=== PATIENT | male | born 1975 | race African-American/Black ===

== ENCOUNTER 2019-02-19 06:37 | Emergency (ER) | payer MEDICAID ==
[~2019-02-19] VITALS: Ht 175.3 cm; Wt 105.5 kg
[2019-02-19 06:44] VITALS: BP 205/133
--- NOTE | 2019-02-19 06:55 | NUR ---
43/M PRESENTED TO ED WITH C/O OCCIPITAL/FRONTAL LOBE GOEL ON/OFF X 3 DAYS. HAD NOSE BLEED LAST NIGHT. DENIES N/V. CURRENT BP 205/133. STATES NON COMPLIANT WITH HTN MEDS. STATES "SLIGHT HEADACHE" PMH-- HTN RX-- NON COMPLIANT
--- NOTE | 2019-02-19 07:13 | NUR ---
GAVE BEDSIDE REPORT TO DAYSHIFT SOWMYA MCKINLEY
--- NOTE | 2019-02-19 07:16 | NUR ---
Patient being evaluated by physician at bedside.
[2019-02-19] MEDS ORDERED: KETOROLAC 60 MG/2 ML VIAL IM ONE (07:25)
[2019-02-19] MEDS ORDERED: ENALAPRIL 10 MG TAB PO ONE (07:25)
[2019-02-19 08:17] VITALS: BP 175/125
--- NOTE | 2019-02-19 08:17 | NUR ---
PATIENT STATED FEELING MUCH BETTER NOW. DENIES PAIN, VSS. Patient discharged with RX OF ENALAPRIL, MOTRIN, HYDROCHLOROTHIAZIDE, PREDENISONE. Patient educated on indication of medication including possible reaction and side effects. All questions addressed prior to discharge. ID band removed. Patient advised to follow up with PMD.
== END 2019-02-19 08:17 | disposition home or self-care (01) ==
LOC: MED 06:37
DX: R51 Headache (principal); I10 Essential (primary) hypertension; F17.200 Nicotine dependence, unspecified, uncomplicated
CPT/HCPCS: 96372; 99283; J1885

== ENCOUNTER 2019-04-08 10:06 | Emergency (ER) | payer MEDICAID ==
[~2019-04-08] VITALS: Ht 175.3 cm; Wt 104.3 kg
[2019-04-08 10:10] VITALS: BP 196/137
--- NOTE | 2019-04-08 10:10 | NUR ---
Patient ambulated to bed 7 with family. RN evaluating patient at bedside.
--- NOTE | 2019-04-08 10:15 | NUR ---
43/M BIB FRIEND c/o left eye swelling, redness and pain x1 day. Pt also c/o photophobia. Patient states he fell asleep with his contacts the night before and took them out yesterday morning. Pt states "It feels like there is sand in his eye." HX HTN. PATIENT STATES PAIN OF 4/10 AT THIS TIME. PATIENT POSITIONED FOR COMFORT; HOB ELEVATED; BEDRAILS UP X1; BED DOWN. ER MD MADE AWARE OF PT STATUS.
[2019-04-08] MEDS ORDERED: FLUORESCEIN OPTH STRIP 1 MG OP ONE (10:20)
--- NOTE | 2019-04-08 11:20 | NUR ---
Patient being evaluated by DR ENGLAND at bedside.
--- NOTE | 2019-04-08 11:30 | NUR ---
REPORT GIVEN TO TIM CHARGE NURSE.
--- NOTE | 2019-04-08 11:38 | NUR ---
IRRIGATED LEFT EYE WITH 40 mL SALINE. PATIENT SAYS THEY FELT RELIEF AFTER IRRIGATION.
[2019-04-08 12:04] VITALS: BP 128/83
--- NOTE | 2019-04-08 12:04 | NUR ---
Patient discharged with v/s stable. Written and verbal after care instructions given and explained. Patient alert, oriented and verbalized understanding of instructions. Ambulatory with steady gait. All questions addressed prior to discharge. ID band removed. Patient advised to follow up with PMD. Rx of CIPRO & MOTRIN given. Patient educated on indication of medication including possible reaction and side effects. Opportunity to ask questions provided and answered.
== END 2019-04-08 12:04 | disposition home or self-care (01) ==
LOC: MED 10:06
DX: H16.002 Unspecified corneal ulcer, left eye (principal); I10 Essential (primary) hypertension; F17.200 Nicotine dependence, unspecified, uncomplicated
CPT/HCPCS: 99283

== ENCOUNTER 2019-11-30 16:32 | Emergency (ER) | payer MEDICAID ==
[~2019-11-30] VITALS: Ht 175.3 cm; Wt 90.7 kg
[2019-11-30 16:39] VITALS: BP 150/87
[2019-11-30] MEDS ORDERED: MORPHINE SULFATE 4 MG/ML SYR IVP ONE (16:50)
[2019-11-30] MEDS ORDERED: ONDANSETRON 4 MG/2 ML VIAL IVP ONE (16:50)
[2019-11-30 17:37] LABS: BASOPHILS % (AUTO) 0.2 % (0.0-2.0); EOSINOPHILS # (AUTO) 0.3 K/uL (0-0.4); EOSINOPHILS % (AUTO) 3.9 % (0.0-4.0); HEMATOCRIT 41.5 % (36-52); HEMOGLOBIN 13.4 g/dL (12.0-18.0); LYMPHOCYTES % (AUTO) 12.7 % (20.5-51.1); MEAN CORPUSCULAR HEMOGLOBIN 27 pg (27-31); MEAN CORPUSCULAR HGB CONC 32 g/dL (33-37); MONOCYTES # (AUTO) 0.5 K/uL (0.8-1.0); MONOCYTES % (AUTO) 6.3 % (1.7-9.3); NEUTROPHILS # (AUTO) 6.3 K/uL (1.8-7.7); NEUTROPHILS % (AUTO) 76.9 % (42.2-75.2); PLATELET COUNT (AUTO) 216 K/uL (140-450); RED BLOOD CELL COUNT(AUTO) 5.07 MIL/uL (4.20-6.10); RED CELL DISTRIBUTION WIDTH 14.8 % (11.6-13.7); WHITE BLOOD COUNT (AUTO) 8.2 K/uL (4.8-10.8)
[2019-11-30 18:01] LABS: ALBUMIN 3.5 g/dL (3.4-5.0); ANION GAP 14.3 (8-16); CARBON DIOXIDE 26.9 mmol/L (21-32); POTASSIUM 3.2 mmol/L (3.5-5.1); TOTAL BILIRUBIN 0.3 mg/dL (0.0-1.0)
[2019-11-30 18:34] VITALS: BP 156/74
== END 2019-11-30 18:30 | disposition home or self-care (01) ==
LOC: MED 16:32
DX: N39.0 Urinary tract infection, site not specified (principal); R11.10 Vomiting, unspecified; I10 Essential (primary) hypertension
CPT/HCPCS: 36415; 80053; 83690; 85025; 99284; J2270; J2405

== ENCOUNTER 2020-01-13 01:55 | Emergency (ER) | payer MEDICAID | END 2020-01-13 04:58 | disposition home or self-care (01) | LOC: MED 01:55 | DX: L03.011 Cellulitis of right finger (principal); F15.10 Other stimulant abuse, uncomplicated | CPT/HCPCS: 26010; 96372; 99283 ==

== ENCOUNTER 2022-01-05 20:22 | Emergency (ER) | payer OTHER, MEDICAID ==
[~2022-01-05] VITALS: Ht 175.3 cm; Wt 126.3 kg
[2022-01-05 20:37] VITALS: BP 126/83
--- NOTE | 2022-01-05 20:41 | NUR ---
PT TO LOBBY
[2022-01-05 21:39] LABS: APPEARANCE,URINE CLEAR (CLEAR); BILIRUBIN,URINE NEGATIVE (NEGATIVE); BLOOD, URINE NEGATIVE (NEGATIVE); COLOR,URINE YELLOW (YELLOW); LEUKOCYTE ESTERASE ,URINE NEGATIVE (NEGATIVE); NITRITE, URINE NEGATIVE (NEGATIVE); PH,URINE 6.5 (5.0-9.0); UGLUCOSE NEGATIVE (NEGATIVE)
--- NOTE | 2022-01-06 00:24 | NUR ---
Dr. Portillo examining patient.
[2022-01-06] MEDS ORDERED: KETOROLAC 60 MG/2 ML VIAL IM ONE (00:40)
[2022-01-06] MEDS ORDERED: NAPR-54 PO (01:07)
[2022-01-06] MEDS ORDERED: CEPH-588 PO (01:11)
[2022-01-06 01:13] VITALS: BP 114/76
== END 2022-01-06 01:13 | disposition home or self-care (01) ==
LOC: MED 20:22
DX: S52.571A Other intraarticular fracture of lower end of right radius, initial encounter for closed fracture (principal); I10 Essential (primary) hypertension; Z79.899 Other long term (current) drug therapy; V29.88XA Motorcycle rider (driver) (passenger) injured in other specified transport accidents, initial encounter; Y93.89 Activity, other specified; Y92.89 Other specified places as the place of occurrence of the external cause; Y99.8 Other external cause status
CPT/HCPCS: 29125; 73110; 81003; 96372; 99284; J1885

== ENCOUNTER 2022-02-13 14:50 | Inpatient (IN) | payer MEDICAID ==
[~2022-02-13] VITALS: Ht 175.3 cm; Wt 124.3 kg
[~2022-02-13 14:50] MED LIST: ASPI-1749 PO; ATOR40TA PO; CEPH-588 PO; METO25TE2 PO; NIFE60TE5 PO
[2022-02-13 14:57] VITALS: BP 123/83
[2022-02-13] MEDS ORDERED: IBUPROFEN 600 MG TAB PO ONE ×2 (15:40→17:20)
--- NOTE | 2022-02-13 15:51 | NUR ---
lab at bedside
[2022-02-13 16:07] LABS: BASOPHILS # (AUTO) 0.1 K/uL (0.00-0.22); BASOPHILS % (AUTO) 0.7 % (0.0-2.0); EOSINOPHILS # (AUTO) 0.7 K/uL (0-0.4); EOSINOPHILS % (AUTO) 7.5 % (0.0-4.0); HEMATOCRIT 40.4 % (36-52); HEMOGLOBIN 13.7 g/dL (12.0-18.0); LYMPHOCYTES # (AUTO) 2.2 K/uL (2.0-11.5); MEAN CORPUSCULAR HEMOGLOBIN 27 pg (27-31); MEAN CORPUSCULAR HGB CONC 34 g/dL (33-37); MONOCYTES # (AUTO) 0.5 K/uL (0.8-1.0); MONOCYTES % (AUTO) 5.8 % (1.7-9.3); NEUTROPHILS # (AUTO) 5.4 K/uL (1.8-7.7); PLATELET COUNT (AUTO) 291 K/uL (140-450); RED BLOOD CELL COUNT(AUTO) 5.11 MIL/uL (4.20-6.10); RED CELL DISTRIBUTION WIDTH 14.5 % (11.6-13.7); WHITE BLOOD COUNT (AUTO) 8.9 K/uL (4.8-10.8)
[2022-02-13 16:37] LABS: ALBUMIN 3.7 g/dL (3.4-5.0); ASPARTATE AMINOTRANSFERASE 33 U/L (15-37); CARBON DIOXIDE 26.4 mmol/L (21-32); CHLORIDE 101 mmol/L (98-107); GLUCOSE 151 mg/dL (74-106); POTASSIUM 4.4 mmol/L (3.5-5.1); SODIUM SERUM 137 mmol/L (136-145); TOTAL BILIRUBIN 0.3 mg/dL (0.0-1.0); UREA NITROGEN, BLOOD 16 mg/dL (7-18)
--- NOTE | 2022-02-13 16:50 | NUR ---
TP ER BED 4
[2022-02-13] MEDS ORDERED: ASPIRIN 325 MG TAB ONE (17:04)
[2022-02-13] MEDS ORDERED: IBUPROFEN 600 MG TAB ONE (17:05)
[2022-02-13 17:08] LABS: CREATININE 0.9 mg/dL (0.6-1.3); GFR ARICAN-AMERICAN 118 mL/min (>90)
[2022-02-13] MEDS ORDERED: HYDROcodone/APAP 7.5/325 MG 1 TAB PO ONE (17:10)
[2022-02-13] MEDS ORDERED: ENOXAPARIN 120 MG/0.8 ML SYR SUBQ ONE (17:10)
[2022-02-13] MEDS ORDERED: ASPIRIN 325 MG TABEC PO STA (17:18)
--- NOTE | 2022-02-13 17:37 | NUR ---
ARLINE obtained, handed to CPT Traci at bedside.
--- NOTE | 2022-02-13 18:06 | NUR ---
Med rec complete.
--- NOTE | 2022-02-13 18:12 | NUR ---
Patient was taken to imaging via wheelchair
--- NOTE | 2022-02-13 19:00 | NUR ---
Patient was offered dinner tray.
--- NOTE | 2022-02-13 19:22 | NUR ---
Report given to SOWMYA Reed for transfer of care.
--- NOTE | 2022-02-13 20:12 | NUR ---
Patient will be admitted to care of TELEMETRY NURSE MARIA T DENG. Admited to TELEMETRY. Will go to room 119B. Belongings list completed. Bedside report to TELEMETRY NURSE MARIA T DENG. TELEMETRY NURSE MARIA T DNEG verbalized understanding of report, no further questions. Patient safely transferred to bed.
--- NOTE | 2022-02-13 20:20 | NUR ---
ADMITTED PT TO [facility] DEPARTMENT FROM ER [facility]RU [facility] WITH THE DIAGNOSIS OF CHEST PAIN. PT IS AOX4, AMBULATORY, ABLE TO VERBALIZE NEEDS AND ABLE TO FOLLOW COMMANDS. PT IS ON ROOM AIR WITH NORMAL SINUS RHYTHM AND ON CARDIAC DIET. PT HAS IV ON LEFT AC GAUGE 18 SALINE LOCK. PT IS CONTINENT AND SKIN IS INTACT. PT HAS NO COMPLAIN OF PAIN THIS TIME AND NO S/S OF DISTRESS. PT WAS ORIENTED TO ROOM/HOSPITAL, BED BUTTON AND CALL LIGHT. ALL SAFETY MEASURES WAS GIVEN. BED IN LOW POSITION, BED WHEELS ON LOCKED AND CALL LIGHT WITHIN REACH.
[2022-02-13] MEDS ORDERED: ACETAMINOPHEN 325 MG TAB PO PRN (21:40)
[2022-02-13] MEDS ORDERED: HYDROcodone/APAP 5/325 MG 1 TAB TAB PO PRN (21:40)
[2022-02-13] MEDS ORDERED: ONDANSETRON 4 MG/2 ML VIAL IVP PRN (21:40)
--- NOTE | 2022-02-13 22:00 | NUR ---
PT WAS GIVEN CRANBERRY JUICE AND CRACKERS PER PT REQUEST. ALL SAFETY MEASURES IMPLEMENTED. BED IN LOW POSITION, BED WHEELS ON LOCKED AND CALL LIGHT WITHIN REACH.
[2022-02-14] VITALS: BP 133/74
--- NOTE | 2022-02-14 | NUR ---
CHANGED THE PT SOCKS INTO HOSPITAL SOCK FOR ANTI-SLIPPERY. ALL SAFETY MEASURES IMPLEMENTED. BED IN LOW POSITION, BED WHEELS ON LOCKED AND CALL LIGHT WITHIN REACH.
--- NOTE | 2022-02-14 02:00 | NUR ---
PT IS SLEEPING. CHEST RISE AND FALL SYMMETRICALLY NOTED. NO S/S OF DISTRESS NOTED. ALL SAFETY MEASURES IMPLEMENTED. BED IN LOW POSITION, BED WHEELS ON LOCKED AND CALL LIGHT WITHIN REACH.
[2022-02-14 04:00] VITALS: BP 141/92
--- NOTE | 2022-02-14 04:00 | NUR ---
CHECKED THE PT, STILL SLEEPING. CHEST RISE AND FALL SYMMETRICALLY NOTED. NO S/S OF DISTRESS NOTED SATING AT 96% WITH RR OF 20, PULSE OF 68, TEMP OF 97.4 AND BP OF 141/92. ALL SAFETY MEASURES IMPLEMENTED. BED IN LOW POSITION, BED WHEELS ON LOCKED AND CALL LIGHT WITHIN REACH.
[2022-02-14 05:41] LABS: BASOPHILS % (AUTO) 0.4 % (0.0-2.0); EOSINOPHILS # (AUTO) 0.6 K/uL (0-0.4); EOSINOPHILS % (AUTO) 8.2 % (0.0-4.0); HEMATOCRIT 38.6 % (36-52); HEMOGLOBIN 13.1 g/dL (12.0-18.0); LYMPHOCYTES # (AUTO) 2.2 K/uL (2.0-11.5); LYMPHOCYTES % (AUTO) 28.5 % (20.5-51.1); MEAN CORPUSCULAR HEMOGLOBIN 27 pg (27-31); MEAN CORPUSCULAR HGB CONC 34 g/dL (33-37); MEAN CORPUSCULAR VOLUME 79.1 fL (80-94); MONOCYTES # (AUTO) 0.6 K/uL (0.8-1.0); MONOCYTES % (AUTO) 7.1 % (1.7-9.3); NEUTROPHILS # (AUTO) 4.4 K/uL (1.8-7.7); NEUTROPHILS % (AUTO) 55.8 % (42.2-75.2); PLATELET COUNT (AUTO) 257 K/uL (140-450); RED BLOOD CELL COUNT(AUTO) 4.88 MIL/uL (4.20-6.10); RED CELL DISTRIBUTION WIDTH 14.6 % (11.6-13.7); WHITE BLOOD COUNT (AUTO) 7.9 K/uL (4.8-10.8)
[2022-02-14 06:03] LABS: ANION GAP 11.5 (8-16); CARBON DIOXIDE 28.5 mmol/L (21-32); CREATININE 0.7 mg/dL (0.6-1.3)
[2022-02-14 06:08] LABS: MAGNESIUM 1.9 mg/dL (1.8-2.4); PHOSPHORUS 4.5 mg/dL (2.5-4.9)
[2022-02-14 06:10] LABS: CHOL/HDL RATIO 4.2 (1-4.5); THYROID STIMULATING HORMONE 3.5 uIU/mL (0.34-3.74)
--- NOTE | 2022-02-14 07:19 | NUR ---
PT IS STABLE. ENDORSED PT TO MORNING SHIFT NURSE FOR CONTINUITY OF CARE.
[2022-02-14] MEDS ORDERED: ASPIRIN 325 MG TABEC PO SCH (09:00)
[2022-02-14] MEDS ORDERED: ASPIRIN 81 MG TAB.CHEW PO SCH (09:00)
[2022-02-14] MEDS ORDERED: NIFEdipine 60 MG TABER PO SCH (09:00)
[2022-02-14] MEDS ORDERED: METOPROLOL SUCCINATE 50 MG TABER PO SCH (09:00)
[2022-02-14] MEDS ORDERED: OMEG-20 PO (10:27)
[2022-02-14 10:59] VITALS: BP 144/88
--- NOTE | 2022-02-14 11:53 | NUR ---
PT IS AOX4. VITALS ARE STABLE. SCHEDULED MEDICATIONS WERE ADMINISTERED. NO COMPLAIN OF PAIN , NO SIGNS OF DISTRESS, CALL LIGHT WITHIN REACH AND BED IS LOW POSITION.
--- NOTE | 2022-02-14 13:19 | NUR ---
DC PLANNING SW MET WITH PT AT BEDSIDE TO COMPLETE ASSESSMENT. PT REPORTS RENTING A ROOM IN HOME, AT THE ADDRESS LISTED ON FILE. PATIENT IDENTIFIED [employer], MOTHER, AND MABEL HAYWOOD, FRIEND, EMERGENCY CONTACT. PATIENT REPORT MEETING WITH PCP REGULARLY, LAST VISIT 02/13. PATIENT REPORTS BEING SENT TO ED BY . PATIENT REPORTS MEDICATION COMPLIANCE AND DENIES BARRIERS IN ACCESS TO NEEDED MEDICATIONS. PATIENT REPORTS RECEIVING MEDIATIONS FROM [facility]/MICHAEL IN [place], WHEN NEEDED. PATIENT REPORTS BEING INDEPENDENT IN ALL ACTIVITIES AND DENIES USE OF DME. PATIENT COMPLETES ALL ADL'S INDEPENDENTLY. PATIENT DENIES MH HX. PT REPORTS SUBSTANCE USE HX OF METH USE THAT HE REPORTS STARTING 10 YRS AGO. PATIENT REPORTS HE USED RECREATIONALLY AND DENIES CURRENT USE. PATIENT REPORTS THAT HE HAS NOT USED IN THREE YEARS AND ATTRIBUTES SOBRIETY TO HIS CHILDREN AND [employer] A[employer]. PATIENT ADAMANTLY DENIED CURRENT USE DESPITE TESTING POSITIVE FOR OPIATE USE. PT DECLINED SUBSTANCE USE RESOURCES OFFERED BY [facility]. PATIENT DENIED HX OF DIABETES, DIALYSIS,HH OR SNF PLACEMENT. PATIENT REPORTS DC PLAN IS TO RETURN HOME WITH HIS FRIEND MABEL PROVIDING TRANSPORTATION WHEN MEDICALLY STABLE. PT REQUESTING [employer] PHONE NUMBER. SW TO PROVIDE. SW INQUIRED ON ADDITIONAL RESOURCES NEEDED, PATIENT DECLINED. Addendum: 02/14/22 at 1521 by Tabatha Peters PROVIDE PATIENT WITH [facility] [employer] PHONE NUMBER. PT ACCEPTED
--- NOTE | 2022-02-14 13:30 | NUR ---
REPORT RECEIVED FROM DAYSHIFT NURSE FOR CONTINUITY OF CARE. PT A/O X4. ABLE TO MAKE NEEDS KNOWN. NO SOB OR RESPIRATORY DISTRESS. ON RA. PLAN OF CARE DISCUSSED. PT DENIES CHEST PAIN. PT VERBALIZED UNDERSTANDING. NEEDS ALL MET AT THIS TIME. ALL SAFETY MEASURES IN PLACE.
[2022-02-14 14:57] VITALS: BP 144/88
--- NOTE | 2022-02-14 16:15 | NUR ---
DISCHARGE INSTRUCTIONS GIVEN. PT VERBALIZED UNDERSTANDING. IV DISCONTINUED, CATHETER INTACT, NO ACTIVE BLEEDING. PT AMBULATED OUT ASSISTED.
[2022-02-14] MEDS ORDERED: ATORVASTATIN 20 MG TAB PO SCH (21:00)
== END 2022-02-14 16:15 | disposition home or self-care (01) | DRG 190 ==
LOC: MED 14:50 → MTU 17:52
PROVIDERS: ADMIT Preventive Medicine Preventive Medicine/Occupational Environmental Medicine; ATTEND Preventive Medicine Preventive Medicine/Occupational Environmental Medicine
DX: I21.4 Non-ST elevation (NSTEMI) myocardial infarction (principal); E83.51 Hypocalcemia; E78.5 Hyperlipidemia, unspecified; I10 Essential (primary) hypertension; Z20.822 Contact with and (suspected) exposure to COVID-19; I24.9 Acute ischemic heart disease, unspecified; R79.89 Other specified abnormal findings of blood chemistry; Z87.891 Personal history of nicotine dependence
CPT/HCPCS: 36415; 71045; 71275; 80048; 80053; 83735; 84100; 84443; 84484; 85025; 85379; 87081; 93005; 96372; 99285; J1650; Q9967

== ENCOUNTER 2022-08-15 14:24 | Emergency (ER) | payer MEDICAID ==
[~2022-08-15] VITALS: Ht 175.3 cm; Wt 130.2 kg
[~2022-08-15 14:24] MED LIST changes: -CEPH-588 PO; +OMEG-20 PO
[2022-08-15 14:46] VITALS: BP 204/117
--- NOTE | 2022-08-15 15:04 | NUR ---
PT AMBULATED TO ER BED3
--- NOTE | 2022-08-15 15:11 | NUR ---
ASSUMED PATIENT CARE, NURSING ASSESSMENT COMPLETED.
[2022-08-15] MEDS ORDERED: METO-747 PO (15:44)
[2022-08-15] MEDS ORDERED: NIFE60TE5 PO (15:44)
[2022-08-15] MEDS ORDERED: CLIN300C61 PO ×2 (15:44→17:11)
[2022-08-15] MEDS ORDERED: ACET-8905 PO ×2 (15:44→17:11)
[2022-08-15 15:57] VITALS: BP 156/99
--- NOTE | 2022-08-15 15:58 | NUR ---
Patient discharged with v/s stable. Written and verbal after care instructions given and explained. Patient alert, oriented and verbalized understanding of instructions. Ambulatory with steady gait. All questions addressed prior to discharge. ID band removed. Patient advised to follow up with PMD. Rx of NORCO, CLINDAMYCIN, METOPROLOL, NIFEDIPINE given. Patient educated on indication of medication including possible reaction and side effects. Opportunity to ask questions provided and answered.
== END 2022-08-15 15:57 | disposition home or self-care (01) ==
LOC: MED 14:24
DX: K08.89 Other specified disorders of teeth and supporting structures (principal); I10 Essential (primary) hypertension; Z76.0 Encounter for issue of repeat prescription; Z79.899 Other long term (current) drug therapy
CPT/HCPCS: 99283

== ENCOUNTER 2022-10-17 14:41 | Inpatient (IN) | payer MEDICAID ==
[~2022-10-17] VITALS: Ht 172.7 cm; Wt 127.0 kg
[~2022-10-17 14:41] MED LIST changes: +ACET-8905 PO; +CLIN300C61 PO; +METO-747 PO
[2022-10-17 16:40] VITALS: BP 180/124
--- NOTE | 2022-10-17 16:51 | NUR ---
TO BED 2 WITH NO ACUTE DISTRESS. NO SOB.
[2022-10-17] MEDS ORDERED: KETOROLAC 30 MG/ML VIAL IVP ONE (17:05)
[2022-10-17] MEDS ORDERED: NACL 0.9% 1,000 ML IV ONE (17:05)
--- NOTE | 2022-10-17 17:14 | NUR ---
SIN AT BEDSIDE FOR EVALUATION
--- NOTE | 2022-10-17 17:15 | NUR ---
47YO MALE PT C/O SHARP L CHEST PAIN XYESTERDAY. REPORTS SUDDEN INTERMITTENT ONSETS AND OCCASIONAL MUSCLE SPASMS. DENIES RADIATION ,N/V/D, NUMBING, SOB OR TAKING MEDICATION. 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 HOB POSITIONED PER COMFORT HX: HTN NKA
[2022-10-17] MEDS ORDERED: METOPROLOL 50 MG TAB PO ONE (17:30)
[2022-10-17] MEDS ORDERED: NIFEdipine 30 MG TABER PO ONE (17:30)
[2022-10-17 17:42] LABS: BASOPHILS % (AUTO) 0.2 % (0.0-2.0); EOSINOPHILS # (AUTO) 0.3 K/uL (0-0.4); EOSINOPHILS % (AUTO) 3.2 % (0.0-4.0); HEMATOCRIT 46.3 % (36-52); HEMOGLOBIN 15.5 g/dL (12.0-18.0); LYMPHOCYTES # (AUTO) 2.1 K/uL (2.0-11.5); LYMPHOCYTES % (AUTO) 26.3 % (20.5-51.1); MEAN CORPUSCULAR HEMOGLOBIN 26 pg (27-31); MEAN CORPUSCULAR HGB CONC 34 g/dL (33-37); MEAN CORPUSCULAR VOLUME 78.7 fL (80-94); MONOCYTES # (AUTO) 0.6 K/uL (0.8-1.0); NEUTROPHILS % (AUTO) 63.3 % (42.2-75.2); PLATELET COUNT (AUTO) 159 K/uL (140-450); RED BLOOD CELL COUNT(AUTO) 5.89 MIL/uL (4.20-6.10); RED CELL DISTRIBUTION WIDTH 15.8 % (11.6-13.7); WHITE BLOOD COUNT (AUTO) 7.9 K/uL (4.8-10.8)
[2022-10-17 18:06] LABS: ALBUMIN 3.8 g/dL (3.4-5.0); ANION GAP 12.6 (8-16); CARBON DIOXIDE 30.5 mmol/L (21-32); CREATININE 0.9 mg/dL (0.6-1.3); POTASSIUM 4.1 mmol/L (3.5-5.1); TOTAL BILIRUBIN 0.3 mg/dL (0.0-1.0)
[2022-10-17 18:15] LABS: BARBITURATE, URINE NEGATIVE ng/ml (NEG <=200); BENZODIAZEPINE, URINE NEGATIVE ng/mL (NEG <=200); CANNABINOID, URINE NEGATIVE ng/mL (NEG <=50); COCAINE, URINE NEGATIVE ng/mL (NEG <=300); OPIATE, URINE NEGATIVE ng/mL (NEG <=2000); PHENCYCLIDINE SCREEN,URINE NEGATIVE ng/mL (NEG <=25)
[2022-10-17] MEDS ORDERED: ASPIRIN 325 MG TAB PO ONE (18:20)
[2022-10-17] MEDS ORDERED: LOVENOX 1MG/KG Q12H SUBQ SCH ×2 (18:20→21:25)
[2022-10-17] MEDS ORDERED: NITROGLYCERIN 0.4 MG TAB SL ONE (18:20)
[2022-10-17] MEDS ORDERED: LABETALOL 20 MG/4 ML VIAL IVP ONE (18:25)
[2022-10-17] MEDS ORDERED: ENOXAPARIN 120 MG/0.8 ML SYR SUBQ SCH (18:27)
[2022-10-17 18:42] LABS: PROTHROMBIN TIME 10.3 secs (10.8-13.4)
--- NOTE | 2022-10-17 19:19 | NUR ---
REPORT GIVEN TO MARSHALL DENG. TRANSFER OF CARE AT THIS TIME
--- NOTE | 2022-10-17 19:24 | NUR ---
The patient's care was reviewed and supervised by [place] [facility], RN.
--- NOTE | 2022-10-17 19:25 | NUR ---
The patient's care was reviewed and supervised by [place] [facility], RN.
--- NOTE | 2022-10-17 19:32 | NUR ---
PATIENT RESTING IN BED, A/OX4, CHEST RISE AND FALL SYMMETRICAL, NO C/O PAIN OR S/S OF DISTRESS, ON MONITOR.
--- NOTE | 2022-10-17 21:19 | NUR ---
PATIENT RESTING IN BED, A/OX4, CHEST RISE AND FALL SYMMETRICAL, NO C/O PAIN OR S/S OF DISTRESS, ON MONITOR.
[2022-10-17] MEDS ORDERED: ACETAMINOPHEN 325 MG TAB PO PRN (21:25)
[2022-10-17] MEDS ORDERED: MORPHINE SULFATE 2 MG/ML SYR IVP PRN (21:25)
[2022-10-17] MEDS ORDERED: HYDROcodone/APAP 5/325 MG 1 TAB TAB PO PRN (21:25)
[2022-10-17] MEDS ORDERED: ONDANSETRON 4 MG/2 ML VIAL IVP PRN (21:25)
[2022-10-17] MEDS ORDERED: LORazepam 2 MG/ML VIAL IVP PRN (21:25)
--- NOTE | 2022-10-17 21:30 | NUR ---
Patient will be admitted to care of Dr. Koch. Admited to telemetry. Will go to room 104A. Belongings list completed. Report to Ever DENG. Ever DENG verbalized understanding of report, no further questions.
[2022-10-17 21:40] VITALS: BP 158/100
--- NOTE | 2022-10-17 21:40 | NUR ---
Admitted from , with chief complaint of CHEST PAIN , 47 y/o ,Male, Cooperative, alert and oriented x 4, on room air. no complains of pain at the moment.iv on r ac, g20.patent and intact. oriented to call light, bed, phone,television, bathroom, smoking policy, visiting hours, procedures, ID bracelet on. Belongings list checked.poc discussed.all safety precautions in place. call light within reach. will continue to monitor.
[2022-10-18] VITALS: BP 132/94
[2022-10-18 04:00] VITALS: BP 144/102
--- NOTE | 2022-10-18 06:17 | NUR ---
PT IS STABLE. NO ACUTE EVENTS THROUGHOUT THE NIGHT. ALL NEEDS MET.NO S/SX OF DISTRESS AT THIS MOMENT. ALL PRECAUTIONS IN PLACE. CALL LIGHT WITHIN REACH. WILL CONTINUE TO MONITOR.
[2022-10-18 06:58] LABS: BASOPHILS % (AUTO) 0.5 % (0.0-2.0); EOSINOPHILS # (AUTO) 0.3 K/uL (0-0.4); EOSINOPHILS % (AUTO) 3.5 % (0.0-4.0); HEMATOCRIT 45.8 % (36-52); HEMOGLOBIN 15.1 g/dL (12.0-18.0); LYMPHOCYTES # (AUTO) 2.1 K/uL (2.0-11.5); LYMPHOCYTES % (AUTO) 29.5 % (20.5-51.1); MEAN CORPUSCULAR HEMOGLOBIN 26 pg (27-31); MEAN CORPUSCULAR HGB CONC 33 g/dL (33-37); MONOCYTES # (AUTO) 0.5 K/uL (0.8-1.0); NEUTROPHILS # (AUTO) 4.3 K/uL (1.8-7.7); NEUTROPHILS % (AUTO) 59.5 % (42.2-75.2); PLATELET COUNT (AUTO) 151 K/uL (140-450); RED BLOOD CELL COUNT(AUTO) 5.73 MIL/uL (4.20-6.10); RED CELL DISTRIBUTION WIDTH 15.5 % (11.6-13.7); WHITE BLOOD COUNT (AUTO) 7.2 K/uL (4.8-10.8)
--- NOTE | 2022-10-18 07:05 | NUR ---
RECEIVED REPORT FROM PROCESS MAINTENANCE TECHNICIAN NURSE FOR CONTINUITY OF CARE. PT STABLE AT THIS TIME.
[2022-10-18 07:14] LABS: ALBUMIN 3.6 g/dL (3.4-5.0); ANION GAP 11.2 (8-16); CARBON DIOXIDE 28.6 mmol/L (21-32); CREATININE 0.8 mg/dL (0.6-1.3); MAGNESIUM 1.9 mg/dL (1.8-2.4); PHOSPHORUS 4.1 mg/dL (2.5-4.9); POTASSIUM 3.8 mmol/L (3.5-5.1); TOTAL BILIRUBIN 0.4 mg/dL (0.0-1.0)
[2022-10-18 08:00] VITALS: BP 139/82
--- NOTE | 2022-10-18 08:51 | NUR ---
PATIENT HAS BEEN SCREENED AND CATEGORIZED LOW NUTRITION RISK. PATIENT WILL BE SEEN WITHIN 7 DAYS OF ADMISSION. 10/24/[address]
[2022-10-18] MEDS ORDERED: NIFEdipine 60 MG TABER PO SCH (09:00)
[2022-10-18] MEDS ORDERED: ENOXAPARIN 120 MG/0.8 ML SYR SUBQ SCH (09:00)
[2022-10-18 12:00] VITALS: BP 146/94
[2022-10-18 16:00] VITALS: BP 144/95
[2022-10-18] MEDS ORDERED: METO-747 PO (16:02)
[2022-10-18] MEDS ORDERED: ASPI-1822 PO (16:02)
[2022-10-18] MEDS ORDERED: NIFE60TE5 PO (16:02)
[2022-10-18] MEDS ORDERED: ATOR40TA PO (16:02)
[2022-10-18 16:40] VITALS: BP 144/95
[2022-10-18] MEDS ORDERED: METOPROLOL SUCCINATE 50 MG TABER PO SCH (21:00)
[2022-10-19] MEDS ORDERED: ATORVASTATIN 20 MG TAB PO SCH (09:00)
[2022-10-19] MEDS ORDERED: ECOTRIN 81 MG TABEC PO SCH (09:00)
== END 2022-10-18 17:20 | disposition home or self-care (01) | DRG 190 ==
LOC: MED 14:41 → MTU 19:45
PROVIDERS: ADMIT Preventive Medicine Preventive Medicine/Occupational Environmental Medicine; ATTEND Preventive Medicine Preventive Medicine/Occupational Environmental Medicine
DX: I21.4 Non-ST elevation (NSTEMI) myocardial infarction (principal); E87.1 Hypo-osmolality and hyponatremia; K76.0 Fatty (change of) liver, not elsewhere classified; R73.9 Hyperglycemia, unspecified; I16.0 Hypertensive urgency; I10 Essential (primary) hypertension; R74.01 Elevation of levels of liver transaminase levels; E78.2 Mixed hyperlipidemia; Z72.0 Tobacco use
CPT/HCPCS: 36415; 71045; 71275; 80053; 80305; 83735; 83880; 84100; 84443; 84484; 85025; 85379; 85610; 85730; 87081; 93005; 96361; 96372; 96374; 96375; 99291; J1650; J1885; J3490; Q9967

== ENCOUNTER 2023-12-01 22:40 | Emergency (ER) | payer MEDICAID ==
[~2023-12-01] VITALS: Ht 175.3 cm; Wt 99.8 kg
[~2023-12-01 22:40] MED LIST changes: -ACET-8905 PO; -ASPI-1749 PO; +ASPI-1822 PO; -ATOR40TA PO; -CLIN300C61 PO; -METO-747 PO; -METO25TE2 PO; +METO50TE63 PO; -OMEG-20 PO
[2023-12-01 22:45] VITALS: BP 206/130; PULSE 103; RESP 20; TEMP 98.1; O2SAT 99
[2023-12-01 23:14] LABS: BASOPHILS % (AUTO) 0.4 % (0.0-2.0); EOSINOPHILS # (AUTO) 0.4 K/uL (0-0.4); HEMOGLOBIN 13.3 g/dL (12.0-18.0); LYMPHOCYTES # (AUTO) 1.9 K/uL (2.0-11.5); LYMPHOCYTES % (AUTO) 19.7 % (20.5-51.1); MEAN CORPUSCULAR HEMOGLOBIN 26 pg (27-31); MEAN CORPUSCULAR HGB CONC 33 g/dL (33-37); MEAN CORPUSCULAR VOLUME 77.8 fL (80-94); MONOCYTES # (AUTO) 0.5 K/uL (0.8-1.0); MONOCYTES % (AUTO) 5.6 % (1.7-9.3); NEUTROPHILS # (AUTO) 6.7 K/uL (1.8-7.7); NEUTROPHILS % (AUTO) 70.3 % (42.2-75.2); PLATELET COUNT (AUTO) 186 K/uL (140-450); RED BLOOD CELL COUNT(AUTO) 5.15 MIL/uL (4.20-6.10); WHITE BLOOD COUNT (AUTO) 9.6 K/uL (4.8-10.8)
[2023-12-01 23:30] LABS: ANION GAP 10.5 (8-16); CALCIUM 8.9 mg/dL (8.5-10.1); CARBON DIOXIDE 29.7 mmol/L (21-32); CREATININE 1.2 mg/dL (0.6-1.3); POTASSIUM 4.2 mmol/L (3.5-5.1)
[2023-12-01 23:37] LABS: ALANINE AMINOTRANSFERASE 84 U/L (12-78); ALBUMIN 3.1 g/dL (3.4-5.0); ALKALINE PHOSPHATASE 112 U/L (50-136); ASPARTATE AMINOTRANSFERASE 57 U/L (15-37); BILIRUBIN,DIRECT 0.1 mg/dL (0.0-0.3); TOTAL BILIRUBIN 0.3 mg/dL (0.0-1.0); TOTAL PROTEIN, SERUM 7.8 g/dL (6.4-8.2)
[2023-12-01] MEDS: LABETALOL 20 MG/4 ML VIAL IVP ONE (23:39)
[2023-12-01] MEDS: MORPHINE SULFATE 4 MG/ML SYR IVP ONE (23:39)
[2023-12-01] MEDS: NITROGLYCERIN 2% 1 GM PKT TP ONE (23:40)
[2023-12-01] MEDS: ASPIRIN 325 MG TAB PO ONE (23:40)
[2023-12-02] MEDS: ENOXAPARIN 100 MG/ML SYR SUBQ ONE (01:12)
[2023-12-02] MEDS: hydrALAZINE 20 MG/ML VIAL IVP ONE (03:17)
[2023-12-02] MEDS: ACETAMINOPHEN EXTRA STRENGTH 500 MG TAB PO ONE (10:58)
[2023-12-02 13:33] VITALS: BP 136/87; PULSE 92; RESP 16; TEMP 98.2; O2SAT 98
== END 2023-12-02 13:10 | disposition short-term general hospital (02) ==
LOC: MED 22:40
DX: I21.4 Non-ST elevation (NSTEMI) myocardial infarction (principal); I20.9 Angina pectoris, unspecified; I11.0 Hypertensive heart disease with heart failure; I50.9 Heart failure, unspecified; Z20.822 Contact with and (suspected) exposure to COVID-19; R00.0 Tachycardia, unspecified; Z79.899 Other long term (current) drug therapy; Z79.82 Long term (current) use of aspirin
CPT/HCPCS: 36415; 71045; 80048; 80076; 83880; 84484; 85025; 85379; 87426; 93005; 96372; 96374; 96375; 99291; J0360; J1650; J2270; J3490; Q0092